=== PATIENT | female | born 1950 | race Caucasian/White ===

== ENCOUNTER 2017-11-07 09:55 | Outpatient (CLI) | payer MEDICARE, OTHER | END 2017-11-07 09:56 | disposition home or self-care (01) | LOC: BICMAMMO 09:55 | PROVIDERS: ATTEND Radiology Diagnostic Radiology | DX: Z12.31 Encounter for screening mammogram for malignant neoplasm of breast (principal); Z80.3 Family history of malignant neoplasm of breast | CPT/HCPCS: 77063; 77067 ==

== ENCOUNTER 2018-09-20 11:02 | Outpatient (CLI) | payer MEDICARE, OTHER ==
--- NOTE | 2018-09-20 14:21 | MRI ---
MRI LUMBAR SPINE WITH AND WITHOUT GADOLINIUM CONTRAST: History: Low back pain. Intervertebral disc disorder with radiculopathy. FINDINGS: Disc space narrowing and posterior disc protrusion at the T11-12 level with effacement of the ventral aspect of the thecal sac and moderate circumferential central canal stenosis. T12-L1: Disc space narrowing. Osteophytosis. No significant central canal or foraminal stenosis. L1-2: Disc space narrowing. Posterior disc bulge and circumferential degenerative changes. Mild steno sis of the central canal and each neural foramen. L2-3: Disc space narrowing and minimal degenerative retrolisthesis. Posterior disc bulge and circumfe rential degenerative changes. Moderate stenosis of the central canal. Moderate right and severe left foraminal stenosis. L3-4: Disc space narrowing. Posterior disc bulge and circumferential degenerative changes. Mild steno sis of the central canal. Severe right and moderate left foraminal stenosis. L4-5: Posterior disc bulge and circumferential degenerative changes. Mild stenosis of the central can al. Severe right and moderate left foraminal stenoses. L5-S1: Disc space narrowing. Thecal sac is patent. Degenerative changes with moderate bilateral yonathan inal stenosis. IMPRESSION: Multilevel degenerative changes throughout the lumbar spine as detailed above, including moderate to severe bilateral foraminal stenoses. POS: EDILMA
== END 2018-09-20 11:03 | disposition home or self-care (01) ==
LOC: MRI 11:02
PROVIDERS: ATTEND Specialist
DX: M51.16 Intervertebral disc disorders with radiculopathy, lumbar region (principal); M47.16 Other spondylosis with myelopathy, lumbar region; M47.27 Other spondylosis with radiculopathy, lumbosacral region; M48.061 Spinal stenosis, lumbar region without neurogenic claudication; M48.07 Spinal stenosis, lumbosacral region
CPT/HCPCS: 72158

== ENCOUNTER 2019-06-18 11:57 | Outpatient (CLI) | payer MEDICARE, OTHER ==
--- NOTE | 2019-06-19 06:48 | MMO ---
Bilateral MAMMO Bilat Screen [facility]. CLINICAL HISTORY: Patient is 69 years old and is seen for screening. The patient has the following family history of breast cancer: daughter, at age 38. The patient has no personal history of cancer. VIEWS: The views performed were: bilateral craniocaudal with tomosynthesis and bilateral mediolateral oblique with tomosynthesis. FILMS COMPARED: The present examination has been compared to prior imaging studies performed at [facility] on 09/06/2015, 09/11/2015, 09/21/2016 and 11/07/2017. MAMMOGRAM FINDINGS: There are scattered fibroglandular densities. There are stable benign appearing calcifications seen in both breasts. There are no suspicious masses, suspicious calcifications, or new areas of architectural distortion. IMPRESSION: THERE IS NO MAMMOGRAPHIC EVIDENCE OF MALIGNANCY. A ROUTINE FOLLOW-UP MAMMOGRAM IN 1 YEAR IS RECOMMENDED. THE RESULTS OF THIS EXAM WERE SENT TO THE PATIENT. ACR BI-RADS Category 2 - Benign finding MAMMOGRAPHY NOTE: 1. A negative mammogram report should not delay a biopsy if a dominant of clinically suspicious mass is present. 2. Approximately 10% to 15% of breast cancers are not detected by mammography. 3. Adenosis and dense breasts may obscure an underlying neoplasm. Reported by: REYES MATTA MD Electonically Signed: [id number]
== END 2019-06-18 11:58 | disposition home or self-care (01) ==
LOC: BICMAMMO 11:57
PROVIDERS: ATTEND Family Medicine
DX: Z12.31 Encounter for screening mammogram for malignant neoplasm of breast (principal); Z80.3 Family history of malignant neoplasm of breast
CPT/HCPCS: 77063; 77067

== ENCOUNTER 2020-04-04 10:35 | Outpatient (CLI) | payer MEDICARE, OTHER ==
--- NOTE | 2020-04-04 11:11 | RAD ---
EXAM: XR Abdomen 2 View PROVIDED CLINICAL HISTORY: IVS. Bloating. GERD. Patient states lower abdominal pain and pressure for a couple of months. COMPARISON: None FINDINGS: There is an irregular nodular density at the medial right lung base which is thought to most likely b e related to superimposition of structures. However follow-up chest x-ray recommended. Postoperative changes likely related to CABG are partially visualized. Mild elevation right hemidiaph ragm is present. Calcification are seen at the lateral aspect left chest. This may potentially be related to calcified lymph nodes in the axilla. No free intraperitoneal air seen beneath the hemidiaphragms. Moderate amount of retained fecal materi al is seen throughout the colon. Bowel gas pattern is otherwise nonspecific. Laminectomy defect is seen at L5 with mild degenerative changes in the spine. Postoperative changes right hip are seen. IMPRESSION: 1. Irregular nodular density right lung base which is thought to be attributable to superimposition o f structures. However, chest x-ray is recommended for further evaluation. 2. Evidence of constipation. Bowel gas pattern is otherwise nonspecific.
== END 2020-04-04 10:36 | disposition home or self-care (01) ==
LOC: BICRAD 10:35
PROVIDERS: ATTEND Internal Medicine Gastroenterology
DX: K21.9 Gastro-esophageal reflux disease without esophagitis (principal); K58.9 Irritable bowel syndrome, unspecified; R14.0 Abdominal distension (gaseous); M54.2 Cervicalgia; M54.5 Low back pain; G89.29 Other chronic pain; M19.90 Unspecified osteoarthritis, unspecified site; J98.4 Other disorders of lung; K59.00 Constipation, unspecified
CPT/HCPCS: 74019

== ENCOUNTER 2020-04-09 12:57 | Outpatient (CLI) | payer MEDICARE, OTHER ==
--- NOTE | 2020-04-09 13:30 | RAD ---
RADIOGRAPH CHEST 2 VIEW: DATE: 04/09/2020 HISTORY: 69-year-old female with abnormality identified at right lower lung zone on recent abdomen radiograph FINDINGS: The thoracic aorta is tortuous and ectatic. There is no evidence of airspace density, pulmonary edema , or pneumothorax. There is no cardiomegaly or pleural effusion. The small density overlying the right lower lung zone on the abdomen radiograph of 04/04/2020 is not definitely identified on the curre nt study. There are sternotomy wires. There is ACDF hardware in the cervical spine. IMPRESSION: 1) No evidence of active cardiopulmonary disease. 2) ectasia of thoracic aorta. 3) status post open heart surgery
== END 2020-04-09 12:58 | disposition home or self-care (01) ==
LOC: BICRAD 12:57
PROVIDERS: ATTEND Internal Medicine Gastroenterology
DX: R93.5 Abnormal findings on diagnostic imaging of other abdominal regions, including retroperitoneum (principal); I77.810 Thoracic aortic ectasia; Z98.890 Other specified postprocedural states
CPT/HCPCS: 71046

== ENCOUNTER 2021-07-20 13:00 | Outpatient (CLI) | payer MEDICARE, OTHER | END 2021-07-20 13:01 | disposition home or self-care (01) | LOC: BICMAMMO 13:00 | PROVIDERS: ATTEND Family Medicine | DX: Z12.31 Encounter for screening mammogram for malignant neoplasm of breast (principal); Z13.820 Encounter for screening for osteoporosis; M85.89 Other specified disorders of bone density and structure, multiple sites; Z78.0 Asymptomatic menopausal state; Z80.3 Family history of malignant neoplasm of breast | CPT/HCPCS: 77063; 77067; 77080 ==

== ENCOUNTER 2021-12-28 12:04 | Outpatient (CLI) | payer MEDICARE, OTHER | END 2021-12-28 12:05 | disposition home or self-care (01) | LOC: TBSIIMAG 12:04 | PROVIDERS: ATTEND Specialist | DX: M47.22 Other spondylosis with radiculopathy, cervical region (principal); R51.9 Headache, unspecified; M47.813 Spondylosis without myelopathy or radiculopathy, cervicothoracic region; M48.02 Spinal stenosis, cervical region; M25.78 Osteophyte, vertebrae; H74.8X3 Other specified disorders of middle ear and mastoid, bilateral; M43.9 Deforming dorsopathy, unspecified; I67.82 Cerebral ischemia; Z98.1 Arthrodesis status; Z98.890 Other specified postprocedural states | CPT/HCPCS: 70553; 72141; 82565 ==

== ENCOUNTER 2022-07-22 10:56 | Outpatient (CLI) | payer MEDICARE, OTHER | END 2022-07-22 10:57 | disposition home or self-care (01) | LOC: BICMAMMO 10:56 | PROVIDERS: ATTEND Family Medicine | DX: Z12.31 Encounter for screening mammogram for malignant neoplasm of breast (principal); Z80.3 Family history of malignant neoplasm of breast | CPT/HCPCS: 77063; 77067 ==

== ENCOUNTER 2022-10-27 08:58 | Outpatient (CLI) | payer MEDICARE | END 2022-10-27 08:59 | disposition home or self-care (01) | LOC: TBSIIMAG 08:58 | PROVIDERS: ATTEND Nurse Practitioner Family | DX: M48.062 Spinal stenosis, lumbar region with neurogenic claudication (principal); M51.34 Other intervertebral disc degeneration, thoracic region; M47.896 Other spondylosis, lumbar region; M47.894 Other spondylosis, thoracic region; M48.04 Spinal stenosis, thoracic region; M47.895 Other spondylosis, thoracolumbar region; M51.35 Other intervertebral disc degeneration, thoracolumbar region; M48.05 Spinal stenosis, thoracolumbar region; M51.36 Other intervertebral disc degeneration, lumbar region; M47.897 Other spondylosis, lumbosacral region; M48.07 Spinal stenosis, lumbosacral region | CPT/HCPCS: 72148 ==

== ENCOUNTER 2023-01-27 10:05 | Outpatient (CLI) | payer MEDICARE ==
[2023-01-27 11:00] LABS: #Basophils 0.1 10x3/uL (0.0-0.2); #Eosinphils 0.2 10x3/uL (0.0-0.5); #Monocytes 0.6 10x3/uL (0.0-1.1); #Neutrophils 5.3 10x3/uL (1.5-8.4); %Basophils 1.4 % (0.0-2.0); %Eosinophils 2.2 % (0.0-6.0); %Lymphocytes 20.3 % (18.0-47.0); %Monocytes 7.6 % (0.0-10.0); %Neutrophils 68.2 % (40.0-75.0); Hemoglobin 14.7 g/dL (12.0-15.5); Mean Corpuscular HGB CONC 33.3 g/dL (32.0-36.0); Mean Corpuscular Hemoglobin 30.2 pg (27.0-33.0); Mean Corpuscular Volume 90.7 fl (81.6-98.3); Mean Platelet Volume 10.2 fl (7.4-10.4); Platelet Count 301 10x3/uL (150-450); RBC Distribution Width 12.4 % (11.5-14.5); Red Blood Cell (RBC) Count 4.86 10x6/uL (3.90-5.03); White Blood Cell (WBC) Count 7.8 10x3/uL (3.5-10.5)
[2023-01-27 11:14] LABS: Prothrombin Time 10.8 sec (9.5-12.1)
[2023-01-27 11:40] LABS: Anion Gap 13 mmol/L (10-20); BUN (Urea Nitrogen) 13 mg/dL (9.8-20.1); Calc. Creatinine Clearance 0 mL/min (70-130); Calcium 9.9 mg/dL (7.8-10.44); Carbon Dioxide 30 mmol/L (23-31); Chloride 102 mmol/L (98-107); Estimated GFR 74; Glucose 63 mg/dL (83-110); Potassium 4.1 mmol/L (3.5-5.1); Sodium 141 mmol/L (136-145)
== END 2023-01-27 10:06 | disposition home or self-care (01) ==
LOC: LABBT 10:05
PROVIDERS: ATTEND Orthopaedic Surgery
DX: Z01.812 Encounter for preprocedural laboratory examination (principal); M17.12 Unilateral primary osteoarthritis, left knee
CPT/HCPCS: 80048; 85025; 85610; 87081

== ENCOUNTER 2023-01-31 05:28 | Observation (INO) | payer MEDICARE ==
[2023-01-31] MEDS ORDERED: Sodium Chloride 0.9% 100 ML ONE ×2 (06:01→06:49)
[2023-01-31] MEDS ORDERED: Tranexamic Acid 1,000 MG/10 ML VIAL ONE (06:01)
[2023-01-31] MEDS ORDERED: fentaNYL PF 100 MCG/2 ML SYRINGE ONE (06:03)
[2023-01-31] MEDS ORDERED: Vancomycin (BATCH) 1.5 GRAM/300 ML BAG ONE (06:27)
[2023-01-31] MEDS ORDERED: Bupivacaine PF 0.5% 30 ML VIAL ONE ×2 (06:29→07:36)
[2023-01-31] MEDS ORDERED: Midazolam HCl 2 mg/2 ml Vial ONE (06:38)
[2023-01-31] MEDS ORDERED: Acetaminophen 325 MG TAB PO PRN (06:46)
[2023-01-31] MEDS ORDERED: Ondansetron PF 4 MG/2 ML Vial IVP PRN ×2 (06:46→07:30)
[2023-01-31] MEDS ORDERED: Zolpidem Tartrate 5 MG TAB PO PRN ×2 (06:46→07:30)
[2023-01-31] MEDS ORDERED: Promethazine HCl 25 MG/ML VIAL IM PRN ×3 (06:46→08:41)
[2023-01-31] MEDS ORDERED: HYDROcodone/Acetaminophen 10/325 mg Tablet PO PRN ×3 (06:46→07:30)
[2023-01-31] MEDS ORDERED: diphenhydrAMINE 25 MG CAP PO PRN (06:46)
[2023-01-31] MEDS ORDERED: tiZANidine HCl 4 MG TAB PO PRN (06:47)
[2023-01-31] MEDS ORDERED: Fluticasone Propionate Nasal Spray 16 gm Bottle NASAL PRN (06:47)
[2023-01-31] MEDS ORDERED: CEFAZOLIN 2 GM VIAL ONE (06:49)
[2023-01-31] MEDS ORDERED: Loratadine 10 MG TAB PO PRN (06:56)
[2023-01-31] MEDS ORDERED: Sevoflurane 250 ML INH ANEST BOTTLE ONE (07:03)
[2023-01-31] MEDS ORDERED: Ketorolac Tromethamine 30 MG/ML VIAL ONE (07:10)
[2023-01-31] MEDS ORDERED: Dexamethasone 20 MG/5 ML VIAL ONE (07:10)
[2023-01-31] MEDS ORDERED: PROPOFOL 200 MG/20 ML VIAL ONE (07:10)
[2023-01-31] MEDS ORDERED: ePHEDrine Sulfate 50 MG/10 ML VIAL ONE (07:10)
[2023-01-31] MEDS ORDERED: Ondansetron PF 4 MG/2 ML Vial ONE (07:10)
[2023-01-31] MEDS ORDERED: Bupivacaine HCl 0.5%/Epinephrine 1:200,000/PF 30 ml Vial ONE (07:10)
[2023-01-31] MEDS ORDERED: Cyclobenzaprine 10 MG TAB PO PRN (07:26)
[2023-01-31] MEDS ORDERED: fentaNYL 50 mcg/mL 1 mL Vial SLOW IVP PRN (07:30)
[2023-01-31] MEDS ORDERED: traMADol HCl 50 MG TAB PO PRN ×2 (07:30)
[2023-01-31] MEDS ORDERED: Ropivacaine 0.2% 550 ML 550 ML NERVE BLCK SCH (07:30)
[2023-01-31] MEDS ORDERED: Lidocaine 1% (PF) 30 ML VIAL ONE (07:36)
[2023-01-31] MEDS ORDERED: Ondansetron HCl/PF 4 MG/2 ML Vial IVP PRN (08:41)
[2023-01-31] MEDS ORDERED: hydrALAZINE 20 MG/ML VIAL SLOW IVP SCH (10:30)
[2023-01-31] MEDS ORDERED: hydrALAZINE 20 MG/ML VIAL ONE (10:32)
[2023-01-31] MEDS ORDERED: fentaNYL 50 mcg/mL 1 mL Vial ONE (10:54)
[2023-01-31] MEDS: Flecainide 50 MG TAB PO SCH ×2 (13:42→20:21)
[2023-01-31] MEDS: Senokot S 8.6-50 MG TAB PO SCH ×2 (13:42→20:21)
[2023-01-31] MEDS: Sodium Chloride 0.9% 1,000 ML IV SCH ×2 (13:42→14:41)
[2023-01-31] MEDS: Multivitamin W/ Minerals 1 TAB PO SCH (13:42)
[2023-01-31] MEDS: Aspirin 81 mg Enteric Coated Tablet PO SCH ×2 (13:42→20:18)
[2023-01-31] MEDS: Ketorolac Tromethamine 30 MG/ML VIAL IVP SCH ×3 (13:43→23:28)
[2023-01-31 14:08] VITALS: BMI 28.1
[2023-01-31] MEDS: CEFAZOLIN 2 GM in Sodium Chloride 0.9% 100 ML IVPB SCH ×2 (14:41→23:28)
[2023-01-31] MEDS ORDERED: Ezetimibe 10 MG TAB PO SCH (21:00)
[2023-01-31] MEDS ORDERED: Famotidine 20 MG TAB PO SCH (21:00)
[2023-01-31] MEDS ORDERED: Spironolactone 25 MG TAB PO SCH (21:00)
[2023-01-31] MEDS ORDERED: Magnesium Oxide 250 MG TAB PO SCH (21:00)
[2023-01-31] MEDS ORDERED: Vitamin E 400 UNITS CAP PO SCH (21:00)
[2023-01-31] MEDS ORDERED: CO Q-10 CAPSULE 100 MG PO SCH (21:00)
[2023-01-31] MEDS ORDERED: Venlafaxine HCl XR 75 MG CAP PO SCH (21:00)
[2023-01-31] MEDS ORDERED: Simvastatin 10 MG TAB PO SCH (21:00)
[2023-01-31] MEDS ORDERED: Multivit, Therapeutic 1 TAB PO SCH (21:00)
[2023-01-31] MEDS ORDERED: CeleCOXIB 100 MG CAP PO SCH (21:00)
[2023-01-31] MEDS: HYDROcodone/Acetaminophen 10/325 mg Tablet PO PRN (21:30)
[2023-02-01] MEDS: Sodium Chloride 0.9% 1,000 ML IV SCH (03:51)
[2023-02-01] MEDS ORDERED: Levothyroxine Sodium 88 MCG TAB PO SCH (06:00)
[2023-02-01] MEDS: Ketorolac Tromethamine 30 MG/ML VIAL IVP SCH (06:05)
[2023-02-01] MEDS: HYDROcodone/Acetaminophen 10/325 mg Tablet PO PRN (06:11)
[2023-02-01 06:42] LABS: Mean Corpuscular HGB CONC 33.3 g/dL (32.0-36.0); Mean Corpuscular Hemoglobin 31.5 pg (27.0-31.0); Mean Corpuscular Volume 94.6 fl (78.0-98.0); Mean Platelet Volume 8.1 fL (7.4-10.4); Platelet Count 224 10x3/uL (130-400); RBC Distribution Width 11.9 % (11.5-14.5); Red Blood Cell (RBC) Count 3.48 mill/uL (4.20-5.40); White Blood Cell (WBC) Count 8.7 10x3/uL (4.8-10.8)
[2023-02-01] MEDS ORDERED: Ferrous Gluconate 324 MG TAB PO SCH (08:00)
[2023-02-01 08:05] VITALS: BP 136/80; TEMP 97.8
[2023-02-01] MEDS ORDERED: Spironolactone 25 MG TAB PO SCH (09:00)
[2023-02-01] MEDS: Flecainide 50 MG TAB PO SCH (09:51)
[2023-02-01] MEDS: Senokot S 8.6-50 MG TAB PO SCH (09:51)
[2023-02-01] MEDS: Multivitamin W/ Minerals 1 TAB PO SCH (09:52)
[2023-02-01] MEDS: Aspirin 81 mg Enteric Coated Tablet PO SCH (09:52)
[2023-02-03] MEDS ORDERED: CeleCOXIB 100 MG CAP PO SCH (21:00)
== END 2023-02-01 10:30 | disposition home or self-care (01) ==
LOC: SDC 05:28 → SURG A 14:05
PROVIDERS: ADMIT Orthopaedic Surgery; ATTEND Orthopaedic Surgery
PROC: 0SRD0J9 Replacement of Left Knee Joint with Synthetic Substitute, Cemented, Open Approach (ICD-10-PCS; principal; 2023-01-31)
DX: M17.12 Unilateral primary osteoarthritis, left knee (principal); I49.9 Cardiac arrhythmia, unspecified; I25.10 Atherosclerotic heart disease of native coronary artery without angina pectoris; E78.5 Hyperlipidemia, unspecified; I10 Essential (primary) hypertension; E03.9 Hypothyroidism, unspecified; G89.29 Other chronic pain; M54.9 Dorsalgia, unspecified; M79.7 Fibromyalgia; K21.9 Gastro-esophageal reflux disease without esophagitis; G47.30 Sleep apnea, unspecified; Z79.890 Hormone replacement therapy; Z79.899 Other long term (current) drug therapy; Z88.5 Allergy status to narcotic agent; Z95.1 Presence of aortocoronary bypass graft; Z98.1 Arthrodesis status
CPT/HCPCS: 20985; 27447; 73560; 85027; 96365; 96366; 96375; 96376 ×2; 97110 ×2; 97116 ×2; 97530; A4306; C1713; C1776; G0378 ×2; J0360; J3010; J3370; 36415; J1100; J1885; J2001; J2250; J2405; J2704; J2795; J3490; J7050; S0020

== ENCOUNTER 2023-05-26 09:56 | Inpatient (IN) | payer MEDICARE ==
[2023-05-26] MEDS ORDERED: Acetaminophen 500 MG TAB ONE (10:19)
[2023-05-26] MEDS ORDERED: fentaNYL 50 mcg/mL 1 mL Vial ONE ×2 (11:20→11:46)
[2023-05-26] MEDS ORDERED: Ropivacaine 0.5% HCl/PF (150 MG/30 ML VIAL) ONE (11:20)
[2023-05-26] MEDS ORDERED: PROPOFOL 200 MG/20 ML VIAL ONE (12:17)
[2023-05-26] MEDS ORDERED: Ondansetron ODT 4 MG TAB ONE (14:37)
[2023-05-26] MEDS ORDERED: Famotidine 20 MG TAB PO PRN (19:42)
[2023-05-26] MEDS ORDERED: Fluticasone Propionate Nasal Spray 16 gm Bottle NASAL PRN (19:47)
[2023-05-26] MEDS ORDERED: tiZANidine HCl 4 MG TAB PO PRN (19:52)
[2023-05-26] MEDS ORDERED: traMADol HCl 50 MG TAB PO PRN (19:54)
[2023-05-26] MEDS: Magnesium Oxide 250 MG TAB PO SCH (22:08)
[2023-05-26] MEDS: Ascorbic Acid 500 mg Chewable Tablet PO SCH (22:09)
[2023-05-26] MEDS: Simvastatin 10 MG TAB PO SCH (22:09)
[2023-05-26] MEDS: Calcium Carbonate 600 MG + Vit D TAB PO SCH (22:09)
[2023-05-26] MEDS: HYDROcodone/Acetaminophen 10/325 mg Tablet PO PRN (22:40)
[2023-05-26] MEDS: Flecainide 50 MG TAB PO SCH (22:40)
[2023-05-26] MEDS ORDERED: Venlafaxine 75 MG TAB PO SCH (23:00)
[2023-05-27 00:58] VITALS: BMI 28.3
[2023-05-27] MEDS: Levothyroxine Sodium 88 MCG TAB PO SCH (05:56)
[2023-05-27] MEDS: HYDROcodone/Acetaminophen 10/325 mg Tablet PO PRN ×2 (05:57→14:10)
[2023-05-27] MEDS: CO Q-10 CAPSULE 100 MG PO SCH (08:03)
[2023-05-27] MEDS: Ezetimibe 10 MG TAB PO SCH (08:04)
[2023-05-27] MEDS: Spironolactone 25 MG TAB PO SCH (08:04)
[2023-05-27] MEDS: Multivit, Therapeutic 1 TAB PO SCH (08:04)
[2023-05-27] MEDS: Flecainide 50 MG TAB PO SCH ×2 (08:16→20:45)
[2023-05-27] MEDS: Vitamin E 400 UNITS CAP PO SCH (08:16)
[2023-05-27] MEDS ORDERED: Venlafaxine 75 MG TAB PO SCH ×2 (09:00→21:00)
[2023-05-27] MEDS ORDERED: Cetirizine HCl 10 MG TAB PO PRN (09:00)
[2023-05-27] MEDS: Ondansetron ODT 4 MG TAB PO PRN ×2 (10:48→16:37)
[2023-05-27] MEDS: Acetaminophen 325 MG TAB PO PRN (17:18)
[2023-05-27] MEDS: Simvastatin 10 MG TAB PO SCH (20:45)
[2023-05-27] MEDS: Ascorbic Acid 500 mg Chewable Tablet PO SCH (20:45)
[2023-05-27] MEDS: Magnesium Oxide 250 MG TAB PO SCH (20:46)
[2023-05-27] MEDS: Calcium Carbonate 600 MG + Vit D TAB PO SCH (20:46)
[2023-05-28 04:49] VITALS: TEMP 98.1
[2023-05-28] MEDS: Levothyroxine Sodium 88 MCG TAB PO SCH (06:08)
[2023-05-28] MEDS: Acetaminophen 325 MG TAB PO PRN (09:16)
[2023-05-28] MEDS: Spironolactone 25 MG TAB PO SCH (09:17)
[2023-05-28] MEDS: CO Q-10 CAPSULE 100 MG PO SCH (09:17)
[2023-05-28] MEDS: Flecainide 50 MG TAB PO SCH (09:18)
[2023-05-28] MEDS: Ezetimibe 10 MG TAB PO SCH (09:21)
[2023-05-28] MEDS: Multivit, Therapeutic 1 TAB PO SCH (09:22)
[2023-05-28] MEDS: Vitamin E 400 UNITS CAP PO SCH (09:22)
[2023-05-28 12:16] VITALS: BP 144/83
== END 2023-05-28 12:20 | disposition home or self-care (01) | DRG 554 ==
LOC: SDC 09:56 → SURG B 18:50 → OBSVTOIN 05-27 16:04
PROVIDERS: ADMIT Orthopaedic Surgery; ATTEND Orthopaedic Surgery
PROC: 3E0T3BZ Introduction of Anesthetic Agent into Peripheral Nerves and Plexi, Percutaneous Approach (ICD-10-PCS; principal; 2023-05-26)
PROC: 0SSDXZZ Reposition Left Knee Joint, External Approach (ICD-10-PCS; 2023-05-26)
DX: M24.662 Ankylosis, left knee (principal); Z96.652 Presence of left artificial knee joint; M24.562 Contracture, left knee; I10 Essential (primary) hypertension; K21.9 Gastro-esophageal reflux disease without esophagitis; I25.10 Atherosclerotic heart disease of native coronary artery without angina pectoris; E78.00 Pure hypercholesterolemia, unspecified; E03.9 Hypothyroidism, unspecified; G47.30 Sleep apnea, unspecified; Z90.710 Acquired absence of both cervix and uterus; Z95.1 Presence of aortocoronary bypass graft; Z79.899 Other long term (current) drug therapy; Z88.6 Allergy status to analgesic agent; Z79.890 Hormone replacement therapy
CPT/HCPCS: J2704; J2795; J3010; Q0162

== ENCOUNTER 2023-11-28 13:46 | Outpatient (CLI) | payer MEDICARE | END 2023-11-28 13:47 | disposition home or self-care (01) | LOC: SCSMRI 13:46 | PROVIDERS: ATTEND Specialist | DX: M51.16 Intervertebral disc disorders with radiculopathy, lumbar region (principal); M51.35 Other intervertebral disc degeneration, thoracolumbar region | CPT/HCPCS: 72148 ==